=== PATIENT | female | born 1990 | race Caucasian/White ===

== ENCOUNTER 2017-11-17 03:01 | Emergency (ER) | payer BC ==
[~2017-11-17] VITALS: Ht 165.1 cm; Wt 96.8 kg
[2017-11-17 05:33] LABS: ALBUMIN 4.2 g/dL (3.2-4.8); CHLORIDE 105 mEq/L (99-109); SODIUM 139 mEq/L (136-147)
[2017-11-17 05:35] LABS: GLUCOSE 139 mg/dL (70-99); TOTAL PROTEIN 7.5 g/dL (6.4-8.3)
[2017-11-17 05:37] LABS: TOTAL BILIRUBIN 0.4 mg/dL (0.0-1.0)
[2017-11-17 05:39] LABS: ALKALINE PHOSPHATASE 112 IU/L (3-129); CREATININE 0.7 mg/dL (0.6-1.3)
[2017-11-17 05:40] LABS: UREA NITROGEN (BUN) 9 mg/dL (9-23)
[2017-11-17 05:41] LABS: AST (GOT) 17 IU/L (2-34); GFR ESTIMATE (CALCULATED) > 59 mL/min/
[2017-11-17 05:42] LABS: ALT (GPT) 27 IU/L (3-49)
[2017-11-17 05:45] LABS: HEMATOCRIT 40.4 % (36.0-46.0); HEMOGLOBIN 14.2 G/DL (11.9-15.5); MCH 29.6 PG (29.0-34.0); MCHC 35.1 G/DL (30.0-36.0); MCV 84.2 FL (83-99); PLATELET COUNT 408 K/uL (156-360); RBC DIS.WIDTH-CV 12.7 % (11.8-14.6); RBC DIS.WIDTH-SD 38.7 % (39-53); TROP-I INTERPRETATION NEGATIVE; TROPONIN-I < 0.01 ng/mL (0.0-0.30); WHITE BLOOD COUNT 10.6 K/uL (4.1-10.2)
[2017-11-17 06:46] LABS: QUANTITATIVE HCG < 4.0 MIU/ML
[2017-11-17 07:06] VITALS: BP 133/85
== END 2017-11-17 07:08 | disposition home or self-care (01) ==
LOC: EME 03:01
PROVIDERS: Nurse Practitioner Family
DX: R00.2 Palpitations (principal); R55 Syncope and collapse; F41.9 Anxiety disorder, unspecified
CPT/HCPCS: 71046; 80053; 84484; 84702; 85027; 93005; 99281; 99285